=== PATIENT | male | born 1935 | race Caucasian/White ===

== ENCOUNTER 2019-10-11 07:38 | Emergency (ER) | payer MEDICARE ==
[~2019-10-11] VITALS: Ht 175.3 cm; Wt 75.0 kg
[2019-10-11 08:12] LABS: BASOPHILS # (AUTO) 0.1 X10'3 (0-0.2); BASOPHILS % (AUTO) 0.9 % (0-1); EOSINOPHILS # (AUTO) 0.5 X10'3 (0-0.9); EOSINOPHILS % (AUTO) 4.9 % (0-6); HEMATOCRIT 46.8 % (42.0-52.0); HEMOGLOBIN 15.2 g/dl (14.0-17.9); LYMPHOCYTES # (AUTO) 2.9 X10'3 (1.1-4.8); LYMPHOCYTES % (AUTO) 29.4 % (21-51); MEAN CORPUSCULAR HEMOGLOBIN 30.1 PG (27.0-31.0); MEAN CORPUSCULAR HGB CONC 32.6 g/dL (33.0-36.5); MEAN CORPUSCULAR VOLUME 92.4 FL (78-98); MEAN PLATELET VOLUME 8.9 FL (7.4-10.4); MONOCYTES # (AUTO) 0.7 X10'3 (0-0.9); MONOCYTES % (AUTO) 7.2 % (2-12); NEUTROPHILS # (AUTO) 5.6 X10'3 (1.8-7.7); NEUTROPHILS % (AUTO) 57.6 % (42-75); PLATELET COUNT 224 X10'3 (140-440); RED BLOOD COUNT 5.06 X10'6 (4.70-6.10); RED CELL DISTRIBUTION WIDTH 13.8 % (11.5-14.5); WHITE BLOOD COUNT 9.7 X10'3 (4.5-11.0)
[2019-10-11 08:20] LABS: ALANINE AMINOTRANSFERASE 25 U/L (12-78); ALBUMIN 3.1 G/DL (3.4-5.0); ALBUMIN/GLOBULIN RATIO 0.8 (1.1-1.5); ALKALINE PHOSPHATASE 70 IU/L (46-116); ANION GAP 11 (8-16); ASPARTATE AMINO TRANSFERASE 16 U/L (10-37); BILIRUBIN,TOTAL 0.5 MG/DL (0.1-1.0); BLOOD UREA NITROGEN 28 MG/DL (7-18); BUN/CREATININE RATIO 16.8 (5.4-32.0); CALCIUM 8.9 MG/DL (8.5-10.1); CHLORIDE 108 MMOL/L (99-107); CREATININE 1.67 MG/DL (0.60-1.10); GLUCOSE 150 MG/DL (70-104); LIPASE 623 U/L (73-393); POTASSIUM 3.7 MMOL/L (3.5-5.1); SODIUM 141 MMOL/L (135-145); TOTAL CARBON DIOXIDE 22.4 MMOL/L (24-32); TOTAL PROTEIN 6.8 G/DL (6.4-8.2); eGFR 39 ML/MIN
[2019-10-11] MEDS ORDERED: ondansetron/PF 4mg/2ml inj IV ONE (08:20)
[2019-10-11] MEDS ORDERED: normal saline 1000ML IV soln IVB ONE (08:20)
--- NOTE | 2019-10-11 09:06 | NUR ---
Encourage to void,handed urinal.
--- NOTE | 2019-10-11 09:28 | NUR ---
MD in at bedside with US. Bladder shows approx 500ml. Orders for SC.
[2019-10-11] MEDS ORDERED: iohexol 300mg/ml 100ml inj. ONE (09:35)
--- NOTE | 2019-10-11 09:43 | NUR ---
Obtain urine via straight cath per ,900 ml clear yellow urine out.
[2019-10-11] MEDS ORDERED: meclizine 12.5mg tablet PO ONE (09:45)
[2019-10-11 10:09] LABS: CLARITY,URINE CLEAR (Clear); COLOR,URINE YELLOW (Yellow); GLUCOSE, URINE 100 mg/dl (Neg); KETONES,URINE NEGATIVE (Neg); LEUKOCYTE ESTERASE ,URINE NEGATIVE (Neg); NITRITES, URINE NEGATIVE (Neg); OCCULT BLOOD,URINE NEGATIVE (Neg); PROTEIN,URINE NEGATIVE (Neg); UROBILINOGEN,URINE 0.2 E.U/dL (0.2-1.0)
--- NOTE | 2019-10-11 10:17 | NUR ---
Pt to CT.
[2019-10-11 10:18] LABS: UA COLLECTION TYPE STRAIGHT CATH
--- NOTE | 2019-10-11 11:14 | NUR ---
Pt reports no more dizziness. Denies any further nausea/vomiting.
[2019-10-11 12:47] VITALS: BP 180/96
== END 2019-10-11 14:18 | disposition home or self-care (01) ==
LOC: ER 07:40
DX: R11.2 Nausea with vomiting, unspecified (principal); H81.10 Benign paroxysmal vertigo, unspecified ear; R53.1 Weakness; R42 Dizziness and giddiness; I10 Essential (primary) hypertension; Z79.899 Other long term (current) drug therapy
CPT/HCPCS: 36415; 70450; 71045; 74177; 80053; 81003; 83690; 84484; 85025; 93005; 96361; 96374; 99285; J2405; J7030; J8597; Q9967

== ENCOUNTER 2019-10-15 05:47 | Emergency (ER) | payer MEDICARE ==
[~2019-10-15] VITALS: Ht 175.3 cm; Wt 77.3 kg
[2019-10-15] MEDS ORDERED: normal saline 1000ML IV soln IVB ONE (06:00)
[2019-10-15] MEDS ORDERED: ondansetron/PF 4mg/2ml inj IV ONE (06:00)
[2019-10-15] MEDS ORDERED: morphine 4 MG/ML inj SYRINge IV PRN (06:00)
--- NOTE | 2019-10-15 06:20 | NUR ---
Assumed care of pt from TONY Farris. Pt in some discomfort with pain/spasm to back. Laying supine on gurney, on monitor.
[2019-10-15] MEDS ORDERED: orphenadrine citrate 60mg/2ml inj. IM ONE (06:40)
--- NOTE | 2019-10-15 06:49 | NUR ---
, Sandi ([phone]), called providing additional medical hx including recent symptomology. Pt has a long hx of back pain and vertigo. noticed increasing weakness over past few weeks and reports current back pain "is nothing like he's ever experienced." Additionally she reports pt spiked a fever of 100.8 on Thursday which she treated w/ Tylenol, including administration ~ 1 hr prior to his arrival to ED today. [facility] notified.
[2019-10-15 07:13] LABS: ALANINE AMINOTRANSFERASE 25 U/L (12-78); ALBUMIN 2.9 G/DL (3.4-5.0); ALBUMIN/GLOBULIN RATIO 0.7 (1.1-1.5); ALKALINE PHOSPHATASE 76 IU/L (46-116); ANION GAP 10 (8-16); ASPARTATE AMINO TRANSFERASE 19 U/L (10-37); BILIRUBIN,TOTAL 0.6 MG/DL (0.1-1.0); BLOOD UREA NITROGEN 25 MG/DL (7-18); BUN/CREATININE RATIO 15.3 (5.4-32.0); CALCIUM 9.1 MG/DL (8.5-10.1); CHLORIDE 103 MMOL/L (99-107); CREATININE 1.63 MG/DL (0.60-1.10); GLUCOSE 108 MG/DL (70-104); LIPASE 62 U/L (73-393); POTASSIUM 4.1 MMOL/L (3.5-5.1); SODIUM 138 MMOL/L (135-145); TOTAL CARBON DIOXIDE 24.7 MMOL/L (24-32); TOTAL PROTEIN 7.2 G/DL (6.4-8.2); eGFR 41 ML/MIN
[2019-10-15 07:21] LABS: BASOPHILS % (AUTO) 0.4 % (0-1); EOSINOPHILS # (AUTO) 0.2 X10'3 (0-0.9); EOSINOPHILS % (AUTO) 1.5 % (0-6); HEMATOCRIT 48.6 % (42.0-52.0); HEMOGLOBIN 16.1 g/dl (14.0-17.9); LYMPHOCYTES # (AUTO) 0.8 X10'3 (1.1-4.8); LYMPHOCYTES % (AUTO) 6.8 % (21-51); MEAN CORPUSCULAR HEMOGLOBIN 30.4 PG (27.0-31.0); MEAN CORPUSCULAR HGB CONC 33.1 g/dL (33.0-36.5); MEAN CORPUSCULAR VOLUME 91.8 FL (78-98); MEAN PLATELET VOLUME 9.4 FL (7.4-10.4); MONOCYTES # (AUTO) 1.1 X10'3 (0-0.9); MONOCYTES % (AUTO) 8.8 % (2-12); NEUTROPHILS % (AUTO) 82.5 % (42-75); PLATELET COUNT 185 X10'3 (140-440); RED BLOOD COUNT 5.29 X10'6 (4.70-6.10); RED CELL DISTRIBUTION WIDTH 13.4 % (11.5-14.5); WHITE BLOOD COUNT 12.1 X10'3 (4.5-11.0)
--- NOTE | 2019-10-15 07:44 | NUR ---
Pt unable to void on own. SC with 500ml out. UA sent to lab. Pt reports some relief in pain and spasms post void.
[2019-10-15] MEDS ORDERED: piperacillin/tazo 3.375gm/50ml 50 ML IV ONE (07:45)
[2019-10-15 07:58] LABS: CLARITY,URINE CLOUDY (Clear); COLOR,URINE YELLOW (Yellow); GLUCOSE, URINE NEGATIVE (Neg); KETONES,URINE TRACE mg/dl (Neg); LEUKOCYTE ESTERASE ,URINE MODERATE (Neg); NITRITES, URINE NEGATIVE (Neg); OCCULT BLOOD,URINE SMALL (Neg); PROTEIN,URINE TRACE mg/dl (Neg); UROBILINOGEN,URINE 0.2 E.U/dL (0.2-1.0)
[2019-10-15 07:59] LABS: UA COLLECTION TYPE STRAIGHT CATH
[2019-10-15 08:05] LABS: SQUAMOUS EPITHELIAL CELL,UR FEW /LPF (FEW)
[2019-10-15 08:14] LABS: WBC,URINE TNTC /HPF (0-4)
[2019-10-15 08:15] LABS: BACTERIA,URINE 4+ /HPF (Neg); WBC CLUMPS,URINE FEW /HPF (NEGATIVE)
--- NOTE | 2019-10-15 08:16 | NUR ---
Pt to CT.
--- NOTE | 2019-10-15 08:21 | NUR ---
Pt back from CT. Tolerated well. In POC.
[2019-10-15] MEDS ORDERED: CefTRIAXone 2gm/D5W 50ml 50 ML IV ONE (08:45)
[2019-10-15] MEDS ORDERED: FLO0.4C PO (09:09)
[2019-10-15] MEDS ORDERED: BACDS PO (09:09)
[2019-10-15] MEDS ORDERED: LIDOcaine 2% 10ml TOPICAL JELLY (Urojet) MM ONE (09:10)
--- NOTE | 2019-10-15 09:58 | NUR ---
Beaulieu cath placed. Pt tolerated well. To DC with [facility]aulieu home.
--- NOTE | 2019-10-15 10:25 | NUR ---
Discussed pt's BP w/ edmd [facility]; new order for enalapril received.
[2019-10-15] MEDS ORDERED: enalaprilat dihydrate 2.5mg/2ml vial IV ONE (10:30)
--- NOTE | 2019-10-15 11:02 | NUR ---
Contacted pts for transport. Pt assisted up to standing position, walked to wheelchair with assistance.
[2019-10-15 11:57] VITALS: BP 167/74
== END 2019-10-15 12:07 | disposition home or self-care (01) ==
LOC: ER 05:48
DX: R33.9 Retention of urine, unspecified (principal); N39.0 Urinary tract infection, site not specified; I25.10 Atherosclerotic heart disease of native coronary artery without angina pectoris; I50.9 Heart failure, unspecified; I11.0 Hypertensive heart disease with heart failure; I25.2 Old myocardial infarction; R11.2 Nausea with vomiting, unspecified; M54.5 Low back pain; Z88.8 Allergy status to other drugs, medicaments and biological substances; Z79.899 Other long term (current) drug therapy
CPT/HCPCS: 36415; 51702; 74176; 80053; 81001; 83605; 83690; 84145; 85025; 87077; 87088; 87186; 96361; 96365; 96367; 96372; 96375; 99285; J0696; J2270; J2360; J2405; J2543; J7030; 51701; 99284